=== PATIENT | female | born 1945 | race Asian ===

== ENCOUNTER 2024-07-11 12:30 | Observation (INO) | payer OTHER ==
[2024-07-11] MEDS: SODIUM CHLORIDE 500 ML IV STA ×2 (13:37→17:30)
[2024-07-11 13:43] LABS: BASO % 0.6 % (0-2.0); EOS % 0.1 % (0-4.5); HEMATOCRIT 39.9 % (32.4-45.2); HEMOGLOBIN 13.4 GM/dL (10.7-15.3); LYMPH % 11.3 % (8-40); MCHC 33.6 g/dl (32.0-36.0); MEAN CELL VOLUME 92.1 fl (80-96); MEAN PLT VOLUME 7.3 fl (7.5-11.1); MONO % 6.6 % (3.8-10.2); NEUT % 81.4 % (42.8-82.8); PLATELET COUNT 180 10^3/uL (134-434); RBC 4.34 M/mm3 (3.60-5.2); WHITE BLOOD COUNT 8.2 K/mm3 (4.0-10.0)
[2024-07-11 14:02] LABS: CHLORIDE 107 mmol/L (98-107); POTASSIUM 3.7 mmol/L (3.5-5.1); SODIUM 138 mmol/L (136-145)
[2024-07-11 14:04] LABS: ALBUMIN 3.4 g/dl (3.4-5.0); ANION GAP 5 mmol/L (4-13); BLOOD UREA NITROGEN 26.7 mg/dL (7-18); CALCIUM 8.9 mg/dL (8.5-10.1); CO2 26 mmol/L (21-32); GLUCOSE,RANDOM 129 mg/dL (74-106); MAGNESIUM 2.2 mg/dL (1.8-2.4)
[2024-07-11 14:08] LABS: CREATININE 0.8 mg/dL (0.55-1.3); SGOT/AST 31 U/L (15-37); SGPT/ALT 27 U/L (13-61)
[2024-07-11 14:09] LABS: BILIRUBIN,TOTAL 1.1 mg/dL (0.2-1)
[2024-07-11 14:10] LABS: TOT PROT 6.9 g/dl (6.4-8.2)
[2024-07-11 14:11] LABS: ALK PHOS 52 U/L (45-117)
[2024-07-11 14:12] VITALS: BMI 22.6
[2024-07-11 20:26] LABS: EPI CELLS 7 /uL (0-25.1); HYALINE CASTS 0 /uL (0-3.1); URINE APPEARANCE CLOUDY; URINE BACTERIA >9,000 /uL (0-1359); URINE BILIRUBIN NEGATIVE (NEGATIVE); URINE COLOR YELLOW; URINE GLUCOSE (UA) NEGATIVE (NEGATIVE); URINE KETONE 2+ (NEGATIVE); URINE LEUK ESTERASE 1+ (NEGATIVE); URINE NITRITE NEGATIVE (NEGATIVE); URINE PROTEIN 1+ (NEGATIVE); URINE RBC 10 /uL (0-23.9); URINE WBC 30 /uL (0-25.8)
[2024-07-11] MEDS ORDERED: ACETAMINOPHEN 325 MG TABLET (FP) ONE (20:37)
[2024-07-11] MEDS ORDERED: CEPHALEXIN MONOHYDRATE 500 MG CAPSULE (UD) PO ONE (20:46)
[2024-07-11] MEDS: ACETAMINOPHEN 325 MG TABLET (FP) PO ONE (20:49)
[2024-07-11] MEDS ORDERED: CEPHALEXIN MONOHYDRATE 500 MG CAPSULE (UD) ONE (20:51)
[2024-07-11] MEDS ORDERED: CEFTRIAXONE 1 G/50 ML PREMIX 50 ML IVPB ONE (21:01)
[2024-07-11] MEDS: SODIUM CHLORIDE 0.9% 500 ML INFUS.BAG IV ONE (21:46)
[2024-07-11] MEDS: CEFTRIAXONE 1,000 MG in DEXTROSE 5%-WATER - 50 ML IVPB ONE (21:46)
[2024-07-12 07:54] LABS: BASO % 0.4 % (0-2.0); HEMATOCRIT 35.4 % (32.4-45.2); HEMOGLOBIN 12.3 GM/dL (10.7-15.3); LYMPH % 15.4 % (8-40); MCH 31.5 pg (25.7-33.7); MCHC 34.7 g/dl (32.0-36.0); MEAN CELL VOLUME 90.9 fl (80-96); MEAN PLT VOLUME 7.5 fl (7.5-11.1); MONO % 9.9 % (3.8-10.2); NEUT % 73.3 % (42.8-82.8); PLATELET COUNT 151 10^3/uL (134-434); RBC 3.89 M/mm3 (3.60-5.2); RDW 12.7 % (11.6-15.6); WHITE BLOOD COUNT 6.8 K/mm3 (4.0-10.0)
[2024-07-12 08:08] LABS: POTASSIUM 3.4 mmol/L (3.5-5.1)
[2024-07-12 08:10] LABS: CALCIUM 8.2 mg/dL (8.5-10.1)
[2024-07-12 08:12] LABS: MAGNESIUM 2.2 mg/dL (1.8-2.4)
[2024-07-12 08:13] LABS: BLOOD UREA NITROGEN 20.7 mg/dL (7-18)
[2024-07-12 08:15] LABS: BILIRUBIN,TOTAL 0.8 mg/dL (0.2-1)
[2024-07-12 08:17] LABS: CREATININE 0.5 mg/dL (0.55-1.3); PHOSPHOROUS 2.9 mg/dL (2.5-4.9)
[2024-07-12 08:20] LABS: TOT PROT 6.2 g/dl (6.4-8.2)
[2024-07-12] MEDS: CEFTRIAXONE 1 G/50 ML PREMIX 50 ML IVPB SCH (10:29)
[2024-07-12] MEDS: ENOXAPARIN NA (PORCINE) 40 MG/0.4 ML DISP.SYRIN SQ SCH (10:29)
[2024-07-12] MEDS: POTASSIUM CHLORIDE TABS 20 MEQ TABLET.ER (FP) PO ONE (10:29)
[2024-07-12 18:24] VITALS: RESP 18
[2024-07-12] MEDS ORDERED: CEFTRIAXONE 1,000 MG in DEXTROSE 5%-WATER - 50 ML IVPB ONE (21:00)
[2024-07-13] MEDS: ENOXAPARIN NA (PORCINE) 40 MG/0.4 ML DISP.SYRIN SQ SCH (09:08)
[2024-07-13] MEDS: CEFTRIAXONE 1 G/50 ML PREMIX 50 ML IVPB SCH (09:09)
[2024-07-13 09:36] LABS: CALCIUM 8.1 mg/dL (8.5-10.1)
[2024-07-13 09:37] LABS: BLOOD UREA NITROGEN 25.5 mg/dL (7-18); MAGNESIUM 2.3 mg/dL (1.8-2.4)
[2024-07-13 09:40] LABS: CREATININE 0.5 mg/dL (0.55-1.3); PHOSPHOROUS 2.8 mg/dL (2.5-4.9)
[2024-07-13 10:41] VITALS: BP 128/68; PULSE 86; TEMP 98.2
== END 2024-07-13 11:28 | disposition home or self-care (01) ==
LOC: JER 12:30 → JERBED 20:58 → J4W 07-12 00:21 → J5S 07-12 17:50
PROVIDERS: ADMIT Internal Medicine
PROC: 3E03329 Introduction of Other Anti-infective into Peripheral Vein, Percutaneous Approach (ICD-10-PCS; principal; 2024-07-11)
PROC: 3E0337Z Introduction of Electrolytic and Water Balance Substance into Peripheral Vein, Percutaneous Approach (ICD-10-PCS; 2024-07-11)
DX: N39.0 Urinary tract infection, site not specified (principal); A41.9 Sepsis, unspecified organism; I10 Essential (primary) hypertension; R32 Unspecified urinary incontinence; G81.94 Hemiplegia, unspecified affecting left nondominant side; R00.0 Tachycardia, unspecified; Z86.73 Personal history of transient ischemic attack (TIA), and cerebral infarction without residual deficits; E87.6 Hypokalemia
CPT/HCPCS: 0241U-QW; 36415; 71045-TC-FY; 80048; 80053; 81003; 82962; 83036; 83735; 84100; 85025; 87040; 87086; 87186; 93005; 93010; 96361; 96365; 96366; 96368; 96372; 97116-GP; 97162-GP; 99285-25; G0378